=== PATIENT | female | born 1985 | race Caucasian/White ===

== ENCOUNTER 2024-05-31 20:28 | Emergency (ER) | payer OTHER ==
[~2024-05-31] VITALS: Ht 165.1 cm; Wt 55.3 kg
--- NOTE | 2024-05-31 20:45 | NUR ---
ERMD AT BEDSIDE. MSE IN PROGRESS.
[2024-05-31] MEDS ORDERED: DEXA0.5E ALT NOSTRI (21:05)
[2024-05-31] MEDS ORDERED: BENZ9GEL2 MM (21:05)
--- NOTE | 2024-05-31 21:09 | NUR ---
Patient discharged to home in stable condition. Written and verbal after care instructions given. Patient verbalizes understanding of instructions. Stressed follow up or return to ER for worsening s/s.
[2024-05-31 21:10] VITALS: BP 110/72; TEMP 98; O2SAT 99
== END 2024-05-31 21:10 | disposition home or self-care (01) ==
LOC: ER 20:28
DX: K12.0 Recurrent oral aphthae (principal)
CPT/HCPCS: A4606; A4663